=== PATIENT | female | born 1950 | race Caucasian/White ===

== ENCOUNTER 2023-08-06 12:12 | Emergency (ER) | payer MEDICARE ==
[2023-08-06 14:56] LABS: CALCIUM 8.7 mg/dL (8.5-10.1); CREATININE 0.8 mg/dL (0.6-1.0); EST CRCL DRUG DOSING (CG) 66.43 mL/min; POTASSIUM,K 4.3 mmol/L (3.6-5.2)
[2023-08-06 14:58] LABS: ANION GAP 13.3 mmol/L (5.0-14.0)
[2023-08-06] MEDS ORDERED: Sodium Chloride 0.9% 50 ML IV SCH (15:15)
[2023-08-06] MEDS ORDERED: Iopamidol 612 MG/ML 100 ML Bottle IV SCH (15:15)
== END 2023-08-06 16:00 | disposition home or self-care (01) ==
LOC: EDBD → JP.ED 12:12 → MERGE 12:12 → JP.ED 16:00
DX: S22.41XA Multiple fractures of ribs, right side, initial encounter for closed fracture (principal); S62.111A Displaced fracture of triquetrum [cuneiform] bone, right wrist, initial encounter for closed fracture; S00.11XA Contusion of right eyelid and periocular area, initial encounter; W18.30XA Fall on same level, unspecified, initial encounter; Y93.53 Activity, golf
CPT/HCPCS: 29125; 36415; 70450; 71101; 71260; 73130; 80048; 99284; J3490; Q9967